=== PATIENT | female | born 1990 | race Asian ===

== ENCOUNTER 2024-11-20 02:57 | Inpatient (IN) | payer OTHER, SELFPAY ==
[2024-11-20 03:15] VITALS: BP 129/99; BMI 29.8
[2024-11-20] MEDS: LR 1000 IV (03:30)
[2024-11-20 04:09] LABS: Hematocrit 38.4 % (37.0-47.0); Hemoglobin 13.6 g/dL (12.0-16.0); Mean Corp Hgb Conc. 35.4 g/dL (33.0-37.0); Mean Corpuscular Hgb 32.7 pg (27.0-31.0); Mean Corpuscular Volume 92.3 fL (81.0-99.0); Mean Platelet Volume 10.4 fL (7.4-10.4); Platelet Count 213 10^3/uL (130-400); Red Blood Cell Count 4.16 10^6/uL (4.20-5.40); White Blood Cell Count 12.3 10^3/uL (4.8-10.8)
[2024-11-20] MEDS: BICITRA 30 ML PO (04:19)
[2024-11-20] MEDS: TYLENOL 1000 MG PO (04:19)
[2024-11-20] MEDS: ANCEF 10 IV (04:38)
[2024-11-20] MEDS: PITOCIN 30 UNITS/NSS 500 ML IV (05:45)
[2024-11-20 06:54] LABS: ALT (SGPT) 13 U/L (0-35); AST (SGOT) 19 U/L (14-36); Albumin 3.3 g/dl (3.5-5.0); Alkaline Phosphatase 116 U/L (38-126); Blood Urea Nitrogen 6 mg/dl (7-17); Calcium 8.8 mg/dl (8.4-10.2); Carbon Dioxide 22 mmol/L (22-30); Chloride 107 mmol/L (98-107); Estimated Creatinine Clearance > 125 ml/min; Glucose 69 mg/dl (70-99); Sodium 137 mmol/L (135-145); Total Bilirubin 0.4 mg/dl (0.2-1.3); eGFR > 60.00
[2024-11-20] MEDS: MORPHINE SULFATE 2 MG IV (07:55)
[2024-11-20] MEDS: PRENATAL PLUS PO (09:36)
[2024-11-20] MEDS: ZOLOFT 50 MG PO (11:33)
[2024-11-20] MEDS: TORADOL 15 MG IV ×3 (11:33→22:58)
[2024-11-20] MEDS: MYLICON 80 MG PO (20:09)
[2024-11-20] MEDS: PERCOCET 5/325 1 TABLET PO (21:27)
[2024-11-21] MEDS: PERCOCET 5/325 2 TABLET PO (01:26)
[2024-11-21] MEDS: TORADOL 15 MG IV (05:03)
[2024-11-21 05:51] LABS: Hematocrit 34.1 % (37.0-47.0); Hemoglobin 11.7 g/dL (12.0-16.0); Mean Corp Hgb Conc. 34.3 g/dL (33.0-37.0); Mean Corpuscular Hgb 32.6 pg (27.0-31.0); Mean Platelet Volume 9.9 fL (7.4-10.4); Platelet Count 186 10^3/uL (130-400); Red Blood Cell Count 3.59 10^6/uL (4.20-5.40); Red Cell Dist. Width 13.2 % (11.5-14.5); White Blood Cell Count 12.7 10^3/uL (4.8-10.8)
[2024-11-21] MEDS: ZOLOFT 50 MG PO (08:49)
[2024-11-21] MEDS: PRENATAL PLUS 1 TABLET PO (08:49)
[2024-11-21] MEDS: SENOKOT-S 1 TABLET PO (08:50)
--- NOTE | 2024-11-21 09:20 | W.PN.ANS.POP ---
Anesthesia Post Operative
- Anesthesia Post Op Note
Vital Signs Stable-See Nursing Note: Yes
Airway Patent: Yes
Adequate Pain Control: Yes
Change in Mental Status: No
Current Postoperative Nausea & Vomiting: No
Anesthesia Complications: No
General Anesthetic Recall: No
Unplanned Admission: No
Post Op Hydration Adequate: Yes
[2024-11-21] MEDS: MOTRIN 600 MG PO ×2 (11:16→19:27)
[2024-11-21] MEDS: PERCOCET 5/325 1 TABLET PO ×2 (11:17→16:27)
[2024-11-21 11:38] LABS: Syphilis/T. pallidum Ab Reflex Negative (Negative)
[2024-11-21] MEDS: MYLICON 80 MG PO (15:08)
[2024-11-21] MEDS: ZOFRAN 4 MG IV (19:19)
[2024-11-22] MEDS: MYLICON 80 MG PO ×3 (00:44→19:03)
[2024-11-22] MEDS: TYLENOL 650 MG PO ×2 (00:44→12:13)
[2024-11-22] MEDS: MOTRIN 600 MG PO ×3 (02:41→19:02)
[2024-11-22 08:46] LABS: Hematocrit 36.5 % (37.0-47.0); Hemoglobin 12.8 g/dL (12.0-16.0); Mean Corp Hgb Conc. 35.1 g/dL (33.0-37.0); Mean Corpuscular Hgb 32.3 pg (27.0-31.0); Mean Corpuscular Volume 92.2 fL (81.0-99.0); Mean Platelet Volume 10.1 fL (7.4-10.4); Platelet Count 215 10^3/uL (130-400); Red Blood Cell Count 3.96 10^6/uL (4.20-5.40); Red Cell Dist. Width 13.1 % (11.5-14.5); White Blood Cell Count 12.2 10^3/uL (4.8-10.8)
[2024-11-22 08:59] LABS: ALT (SGPT) 14 U/L (0-35); AST (SGOT) 27 U/L (14-36); Alkaline Phosphatase 88 U/L (38-126); Blood Urea Nitrogen 9 mg/dl (7-17); Calcium 8.7 mg/dl (8.4-10.2); Carbon Dioxide 26 mmol/L (22-30); Chloride 106 mmol/L (98-107); Estimated Creatinine Clearance > 125 ml/min; Glucose 83 mg/dl (70-99); Potassium 4.2 mmol/L (3.5-5.1); Sodium 137 mmol/L (135-145); Total Bilirubin 0.4 mg/dl (0.2-1.3); Total Protein 5.6 g/dl (6.3-8.2); eGFR > 60.00
[2024-11-22] MEDS: ZOLOFT 50 MG PO (09:25)
[2024-11-22] MEDS: PRENATAL PLUS 1 TABLET PO (09:25)
[2024-11-22] MEDS: PERCOCET 5/325 1 TABLET PO (13:55)
[2024-11-23] MEDS: PERCOCET 5/325 2 TABLET PO (01:12)
[2024-11-23] MEDS: BENADRYL 25 MG PO (02:37)
[2024-11-23] MEDS: PERCOCET 5/325 1 TABLET PO (07:33)
[2024-11-23] MEDS: SENOKOT-S 1 TABLET PO (07:33)
[2024-11-23] MEDS: MOTRIN 600 MG PO (07:34)
[2024-11-23] MEDS: ZOLOFT 50 MG PO ×2 (07:34→07:35)
[2024-11-23] MEDS: MYLICON 80 MG PO (07:34)
[2024-11-23] MEDS: PRENATAL PLUS 1 TABLET PO (07:35)
--- NOTE | 2024-11-23 10:08 | W.DS.TRANS ---
DC Summary - Torch Brazer
-
Discharge Instructions:
Discharge Diagnosis/Procedures section, breech presentation,
gestational hypertension
Diet No restrictions
Activity No strenuous activity
Driving Restrictions No driving for 2 weeks
Bathing Restrictions OK to Shower
Instructions:
Stand-Alone Forms: LDRP Delivery
LDRP Hypertensive Disorders
Changes to Home Medications: No
Discharge Medications:
DC Medications w/original date entered in [facility]
Vitamin 1 tab PO DAILY 11/20/24
sertraline 50 mg PO DAILY 11/20/24
acetaminophen 325 mg tablet 650 mg (2 x 325 mg) PO Q4HPRN PRN mild pain #1 tab 11/22/24
ibuprofen 600 mg tablet 600 mg PO Q6HPRN PRN cramps #60 tabs 11/22/24
oxycodone-acetaminophen 5 mg-325 mg tablet 1 tab PO Q4HPRN PRN moderate pain #5 tabs 11/22/24
Home Medication Changes
Pending Results: Yes
Additional Pending Results:
stool culture
--- NOTE | 2024-11-23 10:08 | W.DCSUMMARY ---
Discharge Summary
Discharge Data
Date of Admission: 11/20/24
Date of Discharge: 11/23/24
-
Pending Results: Yes
Additional Pending Results:
stool culture
Hospital Course
Patient is a 34yo @37.1 who presented to labor and delivery on 11/22 with complaints of leakage of fluid. She was found to be grossly ruptured for clear fluid. She was found to be in roberto breech presentation. Patient underwent primary low
transverse section. The procedure was uncomplicated. The qualitative blood loss was 150mL. She delivered a viable female infant from roberto breech presentation. On postop day 1, she was complaining of 2 loose bowel movement. Stool cultures
were collected and pending at the time of discharge. Her symptoms had resolved prior to going home. She otherwise had no complaints. On postop day 2, she had an elevated blood pressure meeting criteria for gestational hypertension. Preeclampsia labs
were within normal limits and she had no signs of severe features. Most of her blood pressures were normotensive and she did not require medication. On postop day 3, she was meeting all postop milestones. She was tolerating a regular diet, voiding
spontaneously, passing flatus and having bowel movements. She had no signs or symptoms of severe features and her blood pressures were well controlled with no medications. She was stable for discharge home. Discharge instructions and return
precautions reviewed and all questions answered prior to discharge. She was instructed to follow up in the office in 2 weeks for an incision check. She was counseled on the signs and symptoms of severe features prior to discharge.
Discharge Plan
-
Patient Disposition: Home (Routine Discharge)
Discharge Diagnosis/Procedures: section, breech presentation, gestational hypertension
Condition: Good
Diet: No restrictions
Activity: No strenuous activity
Driving Restrictions: No driving for 2 weeks
Bathing Restrictions: OK to Shower
Activity Restrictions/Additional Instructions:
Please call with headaches not resolved with medications, changes in your vision, chest pain, shortness of breath or upper abdominal pain. If your BP is 160/110, please call immediately.
Stand Alone Forms: LDRP Delivery, LDRP Hypertensive Disorders
Referrals:
Orin Morgan MD [Active] - in two weeks
UNKNOWN - PT NOT,INTERVIEWE [Family Provider] -
Prescriptions:
New
acetaminophen 325 mg Tablet
650 mg PO Q4HPRN PRN (Reason: mild pain) Qty: 1 0RF
oxycodone-acetaminophen 5-325 mg Tablet
1 tab PO Q4HPRN PRN (Reason: moderate pain) Qty: 5 0RF
ibuprofen 600 mg Tablet
600 mg PO Q6HPRN PRN (Reason: cramps) Qty: 60 0RF
Continued
Vitamin
1 tab PO DAILY
sertraline
50 mg PO DAILY
Discontinued
Valchlor
500 mg PO BID
Discharge Orders:
Discharge Patient (As Directed); Ordered 11/23/24
Ordered By: Lissett Shane
Discharge Date and Time
Print Language: [id number]
== END 2024-11-23 11:19 | disposition home or self-care (01) | DRG 788 ==
LOC: LDRP 02:57
PROVIDERS: Student in an Organized Health Care Education/Training Program; ADMITTING PHYSICIAN Obstetrics & Gynecology
PROC: 10D00Z1 Extraction of Products of Conception, Low, Open Approach (ICD-10-PCS; 2024-11-20)
PROC: 4A1HXCZ Monitoring of Products of Conception, Cardiac Rate, External Approach (ICD-10-PCS; 2024-11-20)
DX: O32.1XX0 Maternal care for breech presentation, not applicable or unspecified (principal); O13.5 Gestational [pregnancy-induced] hypertension without significant proteinuria, complicating the puerperium; Z3A.37 37 weeks gestation of pregnancy; Z37.0 Single live birth; O99.344 Other mental disorders complicating childbirth; F90.9 Attention-deficit hyperactivity disorder, unspecified type; F41.9 Anxiety disorder, unspecified; F32.A Depression, unspecified; Z79.899 Other long term (current) drug therapy; O90.2 Hematoma of obstetric wound
CPT/HCPCS: 80053; 85027; 86780; 86850; 86900; 86901; 87045; 87046; 87324; 87427; 87449; 89055

== ENCOUNTER → 2024-12-17 13:59 | Outpatient (REF) | payer OTHER, SELFPAY | LOC: RCS 13:59 | PROVIDERS: ATTENDING PHYSICIAN Internal Medicine Cardiovascular Disease; FAMILY PHYSICIAN Hospitalist | DX: R07.2 Precordial pain (principal) | CPT/HCPCS: 93306 ==